=== PATIENT | female | born 1985 | race African-American/Black ===

== ENCOUNTER 2017-03-06 14:28 | Observation (INO) ==
[2017-03-06] MEDS ORDERED: NS 1,000 ML IV ONE (15:00)
[2017-03-06 15:38] LABS: BASO% 0.6 % (0.0-0.8); EOS# 0.18 X1000 (0.0-0.7); HEMATOCRIT 23.8 % (37.0-47.0); HEMOGLOBIN 6.3 g/dL (12.0-16.0); IMM GRAN# 0.02 X1000 (0.0-0.04); IMM GRAN% 0.2 % (0.0-0.5); LYMPH# 3.22 X1000 (1.2-3.4); LYMPH% 36.5 % (20.5-51.1); MANUAL DIFF NEEDED? YES; MCH 14.7 PG (27-31); MCHC 26.5 g/dL (33-37); MCV 55.6 FL (81-99); MONO% 5.7 % (1.7-9.3); MPV 9.5 FL (7.4-10.4); PLT 770 X1000 (130-400); RBC 4.28 XMIL (4.2-5.4)
[2017-03-06 15:52] LABS: AGAP 13; ALBUMIN 3.9 g/dL (3.5-5.0); ALKALINE PHOSPHATASE 81 U/L (32-104); BUN 10 mg/dL (8-22); CHLORIDE 103 mmol/L (98-107); COSMO 276; GOT 18 U/L (10-30); GPT 8 U/L (10-36); POTASSIUM 3.8 mmol/L (3.5-5.1); SODIUM 139 mmol/L (136-145); TCO2 23 mmol/L (25-35); TOTAL BILIRUBIN < 0.15 mg/dL (0.20-1.00); TOTAL PROTEIN 7.7 g/dL (6.3-8.3)
[2017-03-06 16:08] LABS: EOS 1 % (1-10); HYPOCHROM 2+; LYMPHS 43 % (21-51); MONO 5 % (1-9)
--- NOTE | 2017-03-06 16:28 | PROVIDER DOCUMENTATION ---
This chart was entered by Kingsley Rosario Scribe, acting as scribe for Michaelle Meyer MD. HPI-General Adult - General Chief Complaint: Abnormal Lab[s] Stated Complaint: ABNORMAL LABS Time Seen by Provider: 03/06/17 14:59 Source: patient Allergies/Adverse Reactions: Patient Allergies Allergy/AdvReac Type Severity Reaction Status Date / Time No Known Allergies Allergy Verified 03/06/17 14:48 Home Medications: Home Medication List Medication Instructions Recorded Confirmed Last Taken Type NK [No Home Medications] 03/06/17 03/06/17 Unknown History - History of Present Illness -Gen Adult Nature of Presenting Problems: patient is a 32 y/o F that presents from 's office for possible blood transfusion. patient was getting routine check up when labs were drawn. patient was told they had low H&H. pt reports having fatigue, weakness, and dizziness for awhile Denies rectal bleeding Location of Pain/Injury: reports: generalized Pain Radiation: reports: no radiation Quality of Pain: reports: none Severity: reports: moderate Onset/Duration: reports: unsure Timing: reports: still present Context/Activities at Onset: reports: none Modifying Factors: improves with: nothing Associated Symptoms: denies: back/neck pain, chest pain, diaphoresis, diarrhea, dizziness, fatigue, fever/chills, genitourinary problems, headaches, nausea, shortness of breath, vomiting Similar Symptoms Previously?: No Recently seen or treated by another doctor?: Yes Review of Systems - Adult - REVIEW OF SYSTEMS - ADULT Constitutional: reports: fatique. denies: chills, fever Eyes: denies: decreased vision, blurred vision, double vision, eye pain Ears, Nose, Mouth & Throat: denies: ear discharge, ear pain, sinus problem, throat pain, throat swelling Cardiovascular: denies: chest pain, palpitations, syncope Respiratory: denies: dyspnea on exertion, shortness of breath, wheezing Gastrointestinal: denies: abdominal pain, hematemesis, diarrhea, nausea, rectal bleeding, vomiting Genitourinary: denies: dysuria, frequency, hematuria Musculoskeletal: reports: muscle weakness. denies: back pain, joint pain Integumentary: reports: no symptoms reported Neurological: reports: dizziness/vertigo. denies: headache/migraines, loss of balance Psychiatric: reports: no symptoms reported Endocrine: reports: no symptoms reported Hematologic/Lymphatic: reports: no symptoms reported Allergic/Immunologic: reports: no symptoms reported All Other Systems: Reviewed and Negative Past History - Adult - PAST MEDICAL HISTORY-ADULT Review of Records: reports: Old Records Reviewed, Nursing Assessment Review, Medications Reviewed Obstetrical/Gynecological: reports: fibroids Endocrine/Immune: reports: anemia - PRIOR SURGERIES/PROCEDURES Surgical/Procedure History: reports: colonoscopy - IMMUNIZATION STATUS Childhood Immunizations: See Nurse Assessment Flu Vaccine: See Nurse Assessment - FAMILY HISTORY Family History: reviewed, not pertinent - SOCIAL HISTORY Smoking: non-smoker Living Situation: family Physical Exam-General - PHYSICAL EXAM-ADULT Initial Vital Signs Reviewed: Yes - CONSTITUTIONAL General Appearance: alert, no apparent distress - EYES Eyes: PERRL/EOMI, pale conjunctivae - HEAD, EARS, NOSE, MOUTH & THROAT HENMT: normocephalic/atraumatic, moist mucous membranes, pharynx normal, other ( pale gums) - NECK Neck: full range of motion, normal inspection - RESPIRATORY Respiratory: lungs clear, normal breath sounds, no respiratory distress, no accessory muscle use - CARDIOVASCULAR Cardiovascular: regular rate, rhythm, no edema, no murmur - GASTROINTESTINAL (ABDOMEN) Abdominal Exam: normal bowel sounds, non tender, soft, no organomegaly, no pulsatile mass - GENITOURINARY Rectal Exam: normal exam, normal rectal tone. negative: black stool, blood streaked stool Hemoccult Exam: heme negative stool - MUSCULOSKELETAL Extremity: normal range of motion, normal inspection, no pedal edema, no calf tenderness - SKIN Integumentary: warm/dry, pallor - NEUROLOGIC Neurologic: grossly normal, no motor/sensory deficits - PSYCHIATRIC Psych/Mental Status: normal mood/affect, normal thought content, normal thought process, oriented x 3 Progress - PLAN OF CARE/RESULTS Progress/Plan/Lab Results: Vital Signs - 8 hr 03/06/17 14:44 Temperature 98.7 F Pulse Rate 84 Respiratory Rate 18 Blood Pressure 140/084 O2 Sat by Pulse Oximetry 100 Orders Category Date Time Status Saline Loc NOW Care 03/06/17 15:00 Active CBC WITH DIFF [HEME] Stat Lab 03/06/17 15:12 Results COMPREHENSIVE METABOLIC PANEL [CHEM] Stat Lab 03/06/17 15:12 Received TYPE & SCREEN [BBK] Stat Lab 03/06/17 15:12 Received 0.9% Sodium Chloride Inj [Ns] 1,000 ml Med 03/06/17 15:00 Active IV 150 mls/hr pt will be admitted for observation Result Diagrams: 03/06/17 15:12 03/06/17 15:12 - CONSULTS/PCP/HOSPITALIST Notification #1 *Consult/PCP/Hospitalist*: Time Discussed: 16:24 Consult Disposition: Admit Departure - Departure Time of Disposition Decision: 16:24 DIAGNOSIS: Symptomatic anemia Disposition: ADMITTED INPATIENT 09 Certified Medical Emergency: Emergent Condition: Stable Referrals and Follow-Ups: Urban García MD [Primary Care Provider] - - Critical Care Note This patient required my direct & personal management of CC.: No This chart was documented by the indicated scribe, (Kingsley Rosario, Scribe) and accurately reflects the services I performed and decisions made by me, Michaelle Meyer MD, as attested by the provider's signature.
[2017-03-06] MEDS ORDERED: ZOFRAN IV PRN (17:49)
[2017-03-06] MEDS ORDERED: BENADRYL PO ONE (17:49)
[2017-03-06] MEDS ORDERED: TYLENOL PO ONE (17:49)
[2017-03-06 18:24] LABS: IRON SATURATION 3 %; TIBC 425 ug/dL; TOTAL IRON 13 ug/dL (49-151); UNBOUND IRON 412 ug/dL (112-346)
--- NOTE | 2017-03-06 18:36 | EKG Report ---
Test Performed on : 03/06/2017 6:18:03 PM Test Reason : chest pain Blood Pressure : / mmHG Vent. Rate : 075 BPM Atrial Rate : 075 BPM P-R Int : 152 ms QRS Dur : 078 ms QT Int : 374 ms P-R-T Axes : 030 043 027 degrees QTc Int : 417 ms Normal sinus rhythm. Normal ECG No previous ECGs available Unconfirmed Result
--- NOTE | 2017-03-06 18:39 | HISTORY AND PHYSICAL ---
PRIMARY CARE PHYSICIAN: Urban García MD. CHIEF COMPLAINT: Abnormal labs/anemia. HISTORY OF PRESENT ILLNESS: The patient is a 32-year-old, female first seen as a new patient in my office today, evaluated for fatigue with a history of uterine fibroids, noted to have a hemoglobin of 6.3. The patient was called from the office on her first admission to the hospital for an overnight stay for a blood transfusion and further stat evaluation of most likely cause of anemia. REVIEW OF SYSTEMS: Twelve point review of systems pertinent as mentioned in HPI. Patient denies fever, stool blood, denies any acute vaginal bleeding. Denies any epistaxis or any blood in urine. Denies any chest pain or shortness of breath. Denies any lower extremity swelling. Denies any nausea or vomiting. She does describe fatigue. HOME MEDICATIONS: No known medications. ALLERGIES: No known drug allergies. PAST MEDICAL HISTORY: Only significant for uterine fibroids currently being evaluated by Gynecology. SURGICAL HISTORY: The patient has had a colonoscopy remotely otherwise no procedural history. FAMILY HISTORY: Reviewed and not pertinent. The mother does have a history of fibroids. No history of uterine or breast cancers. SOCIAL HISTORY: Nonsmoker. Currently with 1 child. PHYSICAL EXAMINATION: VITAL SIGNS: Temperature 98.7 degrees, pulse 84, respirations 18, blood pressure 140/84, O2 saturation 100%. GENERAL: A well-developed, well-nourished, female, in no acute distress. HEENT: Pupils equal, round, reactive to light and accommodation. Extraocular movements are intact. HEENT: Otherwise within normal limits. OP is clear. CARDIOVASCULAR: Regular rate and rhythm. No murmurs, gallops, or rubs noted. Pulses 2+ bilaterally. LUNGS: Clear to auscultation anteriorly. ABDOMEN: Protuberant, soft, not distended and nontender. LOWER EXTREMITIES: No cyanosis, clubbing, or edema. NEUROLOGICAL: Cranial nerves 2 through 12 are grossly intact. PSYCHOLOGIC: Normal mood and affect. LABS: The patient had an hemoglobin and hematocrit of 6.3 and 23.8 with a platelet count of 770,000. CMP shows blood sugar of 94 with a CO2 of 23, slightly low. No imaging at this time. ASSESSMENT/PLAN: A 32-year-old, female with. 1. 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 We will transfuse 2 units of packed red blood cells, rehydrate and follow with labs available in the morning. We will also draw some labs for further delineation of cost and consider need for iron therapy as outpatient. 2. Dehydration. We will add the fluids and follow with . 3. GI prophylaxis. 4. Deep vein thrombosis. No risk at this time. The patient is at increased risk of bleed so no DVT prophylaxis performed. cc: Urban García MD
[2017-03-06] MEDS: LASIX IV SCH (22:54)
[2017-03-07] MEDS: LASIX IV SCH (03:59)
[2017-03-07] MEDS ORDERED: CYANOCOBALAMIN IM ONE (07:41)
[2017-03-07 07:58] VITALS: BP 136/81
--- NOTE | 2017-03-07 07:59 | DISCHARGE SUMMARY ---
ADMISSION DATE: 03/06/2017 DISCHARGE DATE: 03/07/2017 PRIMARY CARE PHYSICIAN: Dr. Urban García. CHIEF COMPLAINT: On admission, abnormal labs, anemia. HISTORY OF PRESENT ILLNESS: A 32-year-old, female with known uterine fibroids and dysfunctional uterine bleeding. Noted to have a hemoglobin of 6.3. PROBLEM LIST ON DISCHARGE: 1. Anemia of blood loss. Hemoglobin 6.3. 2. Increased platelets. 3. Iron deficiency. 4. Obesity. 5. Dysfunctional uterine bleeding with uterine fibroids. CONSULTS: None. LABORATORY DATA: Labs show hemoglobin and hematocrit of 6.3 and 23.8 prior to 2 units of packed red blood cells. Iron 13, TIBC 425, ferritin of 3. Alkaline phosphatase of 81. Lactate dehydrogenase of 229. HOSPITAL COURSE: Patient was admitted to the general medical floor. Treated with IV fluid resuscitation along side transfusion of 2 units of packed red blood cells, premedicated with Benadryl. The patient responded well to the treatment. No acute concerns noted. Occult blood was negative. The patient had no imaging to report. EKG was within normal limits. On the day of discharge, the patient was responding well to said therapy, functioning as appropriate. Will continue the current treatment outpatient with likely consideration to follow up for IV infusion of iron and evaluation per OB for the further delineation of the need for hysterectomy. The patient will be given a B12 injection today and then will follow outpatient for question of IV iron. Patient will be discharged today in stable condition. Will follow up my office in approximately 1-[address] Bradshaw, hematology, and GEOGRAPHICAL HISTORIAN of which she was already scheduled. cc: Urban García MD
[2017-03-07] MEDS ORDERED: ICAR-C PO SCH (09:00)
[2017-03-08 14:39] LABS: HEMOGLOBIN ELECTROPHORESIS SEE COMMENTS
== END 2017-03-07 11:55 | disposition home or self-care (01) ==
LOC: P.MEDSURG 14:28 → P.ED 14:28 → P.MEDSURG 19:24
PROVIDERS: ADMIT Family Medicine; ATTEND Family Medicine

== ENCOUNTER 2019-09-10 10:31 | Observation (INO) ==
[2019-09-10] MEDS ORDERED: ZOFRAN IV PRN (10:46)
[2019-09-10] MEDS ORDERED: NS 500 ML IV ONE (11:03)
[2019-09-10 11:31] LABS: RETIC% 1.28 % (0.8-2.1); RETIC-HE 12.8 PG (28.2-36.6)
[2019-09-10 11:48] LABS: IRON SATURATION 5 %; TIBC 361 ug/dL; TOTAL IRON 17 ug/dL (49-151); UNBOUND IRON 344 ug/dL (112-346)
[2019-09-10 11:55] LABS: BASO# 0.04 X1000 (0.0-0.2); BASO% 0.6 % (0.0-0.8); EOS# 0.06 X1000 (0.0-0.7); EOS% 0.9 % (0.0-10.0); HEMATOCRIT 22.1 % (37.0-47.0); HEMOGLOBIN 5.5 g/dL (12.0-16.0); IMM GRAN# 0.01 X1000 (0.0-0.04); IMM GRAN% 0.2 % (0.0-0.5); LYMPH# 1.58 X1000 (1.2-3.4); LYMPH% 24.7 % (20.5-51.1); MCH 13.5 PG (27-31); MCHC 24.9 g/dL (33-37); MCV 54.4 FL (81-99); MONO# 0.38 X1000 (0.11-0.59); MONO% 5.9 % (1.7-9.3); MPV 9.1 FL (7.4-10.4); NEUT# 4.32 X1000 (1.4-6.5); NEUT% 67.7 % (42.2-75.2); PLT 583 X1000 (130-400); RBC 4.06 XMIL (4.2-5.4); RDW 22.4 % (11.5-14.5); WBC 6.39 X1000 (4.8-10.8)
[2019-09-10] MEDS ORDERED: FERRLECIT 125 MG in NS 100 ML IV ONE (13:15)
[2019-09-10] MEDS: ICAR-C PO SCH (13:57)
[2019-09-10 14:09] LABS: ANISOCYTOSIS 3+; LYMPHS 25 % (21-51); MONO 5 % (1-9); SEGS 70 % (42-75)
[2019-09-10 14:10] LABS: HYPOCHROM 2+; MICROCYTOSIS 3+; OVALOCYTES 1+; POIKILOCYTOSIS OCCASIONAL; TARGET CELLS OCCASIONAL
--- NOTE | 2019-09-10 15:32 | Diag Imaging Result Doc PS360 ---
EXAM: US PELVIC NON-OB COMPLETE - 09/10/2019 HISTORY: menorrhagia TECHNIQUE: Ultrasound pelvis COMPARISON: None. FINDINGS: The uterus measures 14.1 x 2.8 x 9.8 cm in size. The myometrium demonstrates diffusely heterogeneous echotexture which is suspicious for multiple ill-defined fibroids. The endometrial echo is not discretely visible. The bilateral ovaries appear normal size and demonstrate blood flow signal on Doppler images. There is no adnexal mass identified. There is no free fluid identified. IMPRESSION: Enlarged uterus with diffusely heterogeneous echotexture. This is suspicious for multiple ill-defined fibroids. Electronically signed by Solis Palmer 09/10/2019 3:30 PM
[2019-09-10] MEDS ORDERED: NS 500 ML ONE (16:07)
--- NOTE | 2019-09-10 16:28 | HISTORY AND PHYSICAL ---
PRIMARY CARE PHYSICIAN: Dr. Urban García. CHIEF COMPLAINT: Abnormal hemoglobin and hematocrit on her laboratory data that was drawn yesterday at her primary care physician's office. HISTORY OF PRESENTING ILLNESS: This is a 34-year-old female who [facility] as a direct admit from her primary care physician's office. She states that yesterday she went and had some labs done due to feeling tired, fatigued, headaches, dizziness, almost feeling like she was going to pass out. She received a call from them this morning telling her that her hemoglobin and hematocrit were low and that she needed a blood transfusion, so she was direct admitted to the [facility]. Her laboratory data showed a 5.5 hemoglobin with a hematocrit of 22.1, so she is being admitted for further evaluation. States that she does have heavy cycles with clots. Last menstrual cycle was August 13. She has had a history of iron deficiency anemia and has been told that she needs to take iron supplementation and she states she has not been consistent with that. So she will be admitted for further evaluation and treatment. PAST MEDICAL HISTORY: Iron deficiency anemia. PAST SURGICAL HISTORY: None. FAMILY HISTORY: Her mom is a breast cancer survivor. Her grandfather had an VT. SOCIAL HISTORY: She currently lives with family. Denies any tobacco, alcohol, or illicit drug use. ALLERGIES: She has no known drug allergies. HOME MEDICATIONS: She takes Icar C 1 p.o. daily and we will continue that. LABORATORY DATA: Showed a white blood cell count 6.39, hemoglobin 5.5, hematocrit 22.1, platelets 583,000. Percent reticulocyte was 1.28, reticulocyte hemoglobin equivalent 12.8. Iron of 17, TIBC 361, vitamin B12 510, unsaturated iron binding was 344. REVIEW OF SYSTEMS: She denied any fever, chills, blurred vision. She has had some dizziness, fatigue, headache, neck pain. Denied any chest pain, coughing, shortness of breath. Denied any abdominal pain, constipation, diarrhea, burning or hurting with urination. PHYSICAL EXAMINATION: VITAL SIGNS: On arrival she had a temperature of 98.1 degrees, pulse 87, respirations 16, blood pressure 126/71, saturating 100% on room air. GENERAL: This is a 34-year-old female sitting up in the bed and answers questions appropriately. HENT: Normocephalic, atraumatic. Normal ENT inspection. Oropharynx and nares are clear. EYES: Pupils are equal, round, reactive to light and accommodation. Extraocular movements are intact. NECK: Normal inspection. Normal range of motion. LUNGS: Clear to auscultation bilaterally with equal lung expansion and chest wall movement. HEART: Regular rate and rhythm. No murmurs, rubs, or gallops. ABDOMEN: Soft, nontender, nondistended. Bowel sounds are present x4 quadrants. MUSCULOSKELETAL: She has 5/5 strength x4 extremities. NEUROLOGICAL: The cranial nerves 2-12 appear grossly intact. ASSESSMENT: 1. Symptomatic anemia. 2. Iron deficiency anemia. PLAN: She will be admitted to the medical unit, placed on telemetry, regular diet. We will transfuse 2 units of packed red blood cells today. We will get a pelvic non-OB ultrasound today. Place on her Icar C. We will also give her Ferrlecit 125 mg IV x1 today. We will recheck a CBC and BMP in the a.m. On discharge she is going to need to follow up with ENVIRONMENTAL HEALTH AIDE and Hematology. Most likely she will need some iron infusions since she is noncompliant with her p.o. medications. Further orders after seen by attending. Dictated by JASS Roe for Ru Isaac MD cc: JASS Roe MD Micah A. Howard, MD
--- NOTE | 2019-09-10 19:30 | PROGRESS NOTE ---
DATE: 09/10/2019 SUBJECTIVE: The patient has no major complaints. She is a very pleasant 34-year-old female with menorrhagia and metrorrhagia who came from home for evaluation. She was seen in the office of Dr. Urban García and hemoglobin was 5.4. She has been symptomatic with multiple issues now. She reports she has fibroids. They recommended a partial hysterectomy, but she did not follow up with her CENTER DIRECTOR. PLAN: Dr. Murray apparently is retired, so we are going to try to set her up with a local CENTER DIRECTOR. We will see about Dr. Johnson, and we will continue to follow. Discharge on iron supplementations or set up for iron infusion. cc: Ru Isaac MD
[2019-09-10] MEDS: TYLENOL PO PRN (19:31)
[2019-09-11 07:09] LABS: HEMATOCRIT 28.6 % (37.0-47.0); MCH 17.1 PG (27-31); MCV 61.2 FL (81-99); MPV 9.7 FL (7.4-10.4); RBC 4.67 XMIL (4.2-5.4); RDW 29.4 % (11.5-14.5); WBC 8.03 X1000 (4.8-10.8)
[2019-09-11] MEDS: TYLENOL PO PRN (08:24)
[2019-09-11] MEDS: ICAR-C PO SCH (08:24)
[2019-09-11 08:36] VITALS: BP 109/56
--- NOTE | 2019-09-12 13:22 | DISCHARGE SUMMARY ---
ADMISSION DATE: 09/10/2019 DISCHARGE DATE: 09/11/2019 PRIMARY CARE PHYSICIAN: Dr. Urban García. ADMISSION DIAGNOSES: 1. Symptomatic anemia. 2. Iron deficiency anemia. DISCHARGE DIAGNOSES: 1. Symptomatic anemia, improved. 2. Iron deficiency anemia. SUMMARY OF FINDINGS: This is a 34-year-old female, who was a direct admit from her primary care physician's office after she had some labs drawn for feeling tired, fatigued, dizzy, headaches, almost feeling like she was going to pass out. She received a call from them on the morning of arrival that her hemoglobin and hematocrit were low and that she needed a blood transfusion, so she was admitted to the [facility]. Her hemoglobin and hematocrit were 5.5 and 22.1 on arrival. States she has heavy cycles with clots, normal cycles and the last one was on August 13. She has a history of iron deficiency anemia and been told to take her iron supplementation, but has not been very consistent with that. She received 2 units of packed red blood cells overnight. Hemoglobin and hematocrit is up now to 8 and 28.6. We did do a pelvic ultrasound that showed an enlarged uterus with diffusely heterogeneous echotexture suspicious for multiple ill-defined fibroids. She will most definitely need to follow up with her RFID MANAGER, and it is felt that she can safely be discharged home today. DISCHARGE MEDICATIONS: She will continue her Icar-C 1 p.o. daily. FOLLOWUP: She will need to follow up with her primary care physician in the next 1 to 2 weeks, and she needs to schedule an appointment with her RFID MANAGER in the next 1 to 2 weeks as well. All discharge instructions have been reviewed with the patient and she verbalized understanding. TIME SPENT: This is a 35 minute discharge. Dictated by JASS Roe for Ru Isaac MD cc: JASS Roe MD Micah A. Howard, MD
--- NOTE | 2019-09-12 13:31 | DISCHARGE SUMMARY ---
ADMISSION DATE: 09/10/2019 DISCHARGE DATE: 09/11/2019 ADDENDUM: Briefly this is a 34-year-old female with symptomatic anemia. She is doing well today. No major complaints. Hemoglobin and hematocrit have come up to 8 and 28. Her exam is unremarkable. Plan for discharge today. I would recommend follow up with Dr. Bradshaw for iron infusions and Dr. Johnson for final evaluation for her fibroids. Her iron was 17 and her ferritin is 2. She is already on Icar C apparently, and we will continue to manage. This is a face-to- face encounter note with Kelsey Medellin. cc: Ru Isaac MD
== END 2019-09-11 13:35 | disposition home or self-care (01) ==
LOC: P.DIRADM → P.MEDSURG 10:35
PROVIDERS: ATTEND Internal Medicine